=== PATIENT | female | born 1995 | race Caucasian/White ===

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

== ENCOUNTER 2018-09-17 16:17 | Emergency (ER) | payer MEDICAID ==
[2018-09-17 16:39] VITALS: RESP 18; TEMP 98.5; O2SAT 100; BMI 24.1
--- NOTE | 2018-09-17 17:03 | ED PDOC ---
Arrival/HPI - General Chief Complaint: GI Problem Time Seen by Provider: 09/17/18 16:27 Historian: Patient - History of Present Illness Narrative History of Present Illness (Text): 09/17/18 17:02 23 yo F no PMH, c/o constant abdominal pain x 2 yrs daily, with decreased appetite, has lost weight x 100 lbs over [address] Garcia 2 days ago advised to go to the ER to have labs and CT A/P. Patient describes pain as a burning sensation, worse with eating wheat and carbs, occurs typically after eating, has been associated with nausea, vomiting x 2 weeks. Patient also has chronic constipation has to take laxatives. She states that two years ago was seen in an ER for similar symptoms, had labs done. Otherwise reports no fevers, chills, CP, SOB, back pain, urinary symptoms, diarrhea. Of note, patient has not seen GI for her symptoms. Reports no h/o abdominal surgeries. PMD Radha Past Medical History - Infectious Disease Hx of Infectious Diseases: None - Psychiatric Hx Substance Use: No - Anesthesia Hx Anesthesia: No Hx Anesthesia Reactions: No Hx Malignant Hyperthermia: No Family/Social History Family/Social History: No Known Family HX Smoking Status: Never Smoked Hx Alcohol Use: No Hx Substance Use: No Allergies/Home Meds Allergies/Adverse Reactions: Allergies No Known Allergies Allergy (Verified 09/17/18 16:26) Review of Systems - Review of Systems Constitutional: absent: Fatigue, Fevers Respiratory: absent: SOB, Cough Cardiovascular: absent: Chest Pain, Palpitations Gastrointestinal: Abdominal Pain, Nausea, Vomiting. absent: Diarrhea Genitourinary Female: absent: Dysuria, Frequency Musculoskeletal: absent: Arthralgias, Back Pain Skin: absent: Rash, Skin Lesions Neurological: absent: Headache, Dizziness Physical Exam Vital Signs Temp Pulse Resp BP Pulse Ox 09/17/18 16:25 98.5 F 83 18 107/70 100 Temperature: Afebrile Blood Pressure: Normal Pulse: Regular Respiratory Rate: Normal Appearance: Positive for: Well-Appearing, Non-Toxic, Comfortable Pain Distress: None Mental Status: Positive for: Alert and Oriented X 3 - Systems Exam Head: Present: Atraumatic, Normocephalic Pupils: Present: PERRL Extroacular Muscles: Present: EOMI Conjunctiva: Present: Normal Mouth: Present: Moist Mucous Membranes Neck: Present: Normal Range of Motion Respiratory/Chest: Present: Clear to Auscultation, Good Air Exchange. No: Respiratory Distress, Accessory Muscle Use Cardiovascular: Present: Regular Rate and Rhythm, Normal S1, S2. No: Murmurs Abdomen: Present: Other (negative singh's). No: Tenderness, Distention, Peritoneal Signs, Rebound, Guarding, [place]'s [place] Tender Back: Present: Normal Inspection Upper Extremity: Present: Normal Inspection. No: Cyanosis, Edema Lower Extremity: Present: Normal Inspection. No: Edema Neurological: Present: GCS=15, CN II-XII Intact, Speech Normal Skin: Present: Warm, Dry, Normal Color. No: Rashes Psychiatric: Present: Alert, Oriented x 3, Normal Insight, Normal Concentration Medical Decision Making ED Course and Treatment: 09/17/18 17:09 Plan : - IV - Labs - UA, urine cx - Pepcid / Zofran - Reassess / disposition - CT A/P 09/17/18 18:34 Labs reviewed : wbc 4.2, hgb 9.9 / hct 32, cmp wnl, ua (-), uhcg (-). Patient resting in bed comfortably in no acute distress. Drinking po contrast, pending CT. Patient had her CT, pending results, patient laying comfortably in bed in no acute distress. 09/17/18 22:46 CT Abdomen/Pelvis, reviewed by radiologist: IMPRESSION: Diffuse periportal edema is noted. Subtle pericholecystic edema. Differential includes fluid overload vs acute hepatitis. Electronically signed on Sep 17, 2018 10:46:02 PM EDT by: Romain Samuel M.D., EDWARDO Certified By [facility] [facility] Fellowship Trained MRI and CT Specialist On re-evaluation, patient remains AAOx3, in no acute distress, laying in bed comfortably, using her cell phone. Abdomen soft, non-tender. Case d/w Dr. Garcia, states that the patient can be d/c with outpatient follow up with him and GI referral. Diagnostic results d/w the patient in great detail. Diagnosis of possible dyspepsia d/w the patient. Advised that she should see a GI specialist for her symptoms and obtain an outpatient endoscopy for further evaluation. Based on history, exam and diagnostic results, plan will be for outpatient follow up. Patient instructed to follow-up with pmd and GI referral provided in 1-2 days w ithout fail. Advised to take medication as prescribed. Return to the emergency room at any time for any new or worsening symptoms. Patient states she fully agrees with and understands discharge instructions. States that she agrees with the plan and disposition. Verbalized and repeated discharge instructions and plan. I have given the patient opportunity to ask any additional questions. - PA / SALES AND MARKETING VICE PRESIDENT / Resident Statement MD/DO has reviewed & agrees with the documentation as recorded. Disposition/Present on Arrival - Present on Arrival Any Indicators Present on Arrival: No History of DVT/PE: No History of Uncontrolled Diabetes: No Urinary Catheter: No History of Decub. Ulcer: No History Surgical Site Infection Following: None - Disposition Have Diagnosis and Disposition been Completed?: Yes Diagnosis: Chronic abdominal pain Disposition: HOME/ ROUTINE Disposition Time: 22:45 Patient Plan: Discharge Condition: STABLE Discharge Instructions (ExitCare): Acute Abdomen (Belly Pain), Adult (DC) Additional Instructions: Thank you for letting us take care of you today. You were treated for chronic abdominal pain. The emergency medical care you received today was directed at your acute symptoms. If you were prescribed any medication, please fill it and take as directed. It may take several days for your symptoms to resolve. Return to the Emergency Department if your symptoms worsen, do not improve, or if you have any other problems. Please contact your doctor in 2 days for re-evaluation and follow up / or call one of the physicians/clinics you have been referred to that are listed on the Patient Visit Information form that is included in your discharge packet. Bring any paperwork you were given at discharge with you along with any medications you are taking to your follow up visit. Our treatment cannot replace ongoing medical care by a primary care provider (PCP) outside of the emergency department. Thank you for allowing the [employer] [facility] team to be part of your care today. Your CT scan of the abd/pelvis showed diffuse periportal edema, subtle pericholecystic edema. Follow up CT results with your PMD and with GI referral. Prescriptions: Esomeprazole Magnesium [Nexium] 20 mg PO DAILY #30 ecc Referrals: Qi Mccormack MD [Medical Doctor] - Follow up with primary Johnny Garcia MD [Primary Care Provider] - Follow up with primary Forms: [email or web address] ([place]), SCHOOL NOTE, WORK NOTE
[2018-09-17] MEDS ORDERED: Sodium Chloride 0.9% 1,000 ML IV STA (17:09)
[2018-09-17 17:49] LABS: BASO # 0.06 K/mm3 (0.0-2.0); BASO % 1.4 % (0.0-3.0); EOS # 0.1 (0.0-0.7); EOS % 2.6 % (1.5-5.0); HEMOGLOBIN 9.9 g/dL (12.0-16.0); LYMPH % 47.8 % (22.0-35.0); MEAN CELL VOLUME 82.3 fl (80.0-105.0); MEAN CORPUSCULAR HEMOGLOBIN 25.4 pg (25.0-35.0); MEAN CORPUSCULAR HGB CONC 30.8 g/dl (31.0-37.0); MEAN PLATELET VOLUME 9.7 fl (7.0-11.0); MONO # 0.4 (0.1-0.6); MONO % 9.9 % (1.0-6.0); RBC 3.9 10^6/uL (3.5-6.1); RED CELL DISTRIBUTION WIDTH 13.9 % (11.5-14.5); WHITE BLOOD COUNT 4.2 10^3/uL (4.5-11.0)
[2018-09-17 18:00] LABS: ALB/GLOB RATIO 1.2 (1.1-1.8); ALBUMIN 4.2 g/dL (3.0-4.8); AST/SGOT 28 U/L (14-36); BLOOD UREA NITROGEN 8 mg/dL (7-21); CALCIUM 9.5 mg/dL (8.4-10.5); GFR NON-AFRICAN AMERICAN > 60; LIPASE 120 U/L (23-300)
[2018-09-17 18:03] LABS: INR 1.2; PARTIAL THROMBOPLASTIN TIME 32.7 Seconds (26.9-38.3); PROTHROMBIN TIME 13.3 SECONDS (9.4-12.5)
[2018-09-17 18:15] LABS: ALT/SGPT < 6 U/L (7-56)
[2018-09-17 18:20] LABS: URINE BILIRUBIN NEGATIVE (NEGATIVE); URINE BLOOD NEGATIVE (NEGATIVE); URINE GLUCOSE (UA) NEGATIVE (NEGATIVE); URINE LEUKOCYTE ESTERASE TRACE Leu/uL (NEGATIVE); URINE PROTEIN NEGATIVE mg/dL (<30 mg/dL); URINE UROBILINOGEN 0.2 E.U./dL (<1 E.U./dL)
[2018-09-17 18:22] LABS: URINE APPEARANCE CLEAR (CLEAR); URINE COLOR YELLOW (YELLOW)
[2018-09-17] MEDS ORDERED: Iohexol 350 MG/100 ML VIAL ONE (18:22)
[2018-09-17] MEDS ORDERED: Iohexol 240 (50 ml) ONE (18:22)
[2018-09-18 00:38] VITALS: BP 108/78; PULSE 75
--- NOTE | 2018-09-18 09:17 | CT ---
Date of service: 09/17/2018 PROCEDURE: CT Abdomen and Pelvis with contrast HISTORY: Abdominal pain, hematemesis. Vomiting COMPARISON: None. TECHNIQUE: Intravenous contrast dose: 100 cc Omnipaque 300. Radiation dose: Total exam DLP = 448.02 mGy-cm. This CT exam was performed using one or more of the following dose reduction techniques: Automated exposure control, adjustment of the mA and/or kV according to patient size, and/or use of iterative reconstruction technique. FINDINGS: LOWER THORAX: Unremarkable. LIVER: Periportal edema identified common nonspecific finding that can be seen with congestive heart failure which is unlikely given the patient's age. Additional etiologies would be hepatitis, infectious inflammatory processes of the liver. No gross lesion or ductal dilatation. GALLBLADDER AND BILE DUCTS: No gallstones are visible. PANCREAS: Unremarkable. No gross lesion or ductal dilatation. SPLEEN: Unremarkable. ADRENALS: Unremarkable. No mass. KIDNEYS AND URETERS: Unremarkable. No hydronephrosis. No solid mass. VASCULATURE: Unremarkable. No aortic aneurysm. No atherosclerotic calcification or mural plaque present. BOWEL: Unremarkable. No obstruction. No gross mural thickening. APPENDIX: Normal appendix. PERITONEUM: Unremarkable. No free fluid. No free air. LYMPH NODES: Unremarkable. No enlarged lymph nodes. BLADDER: Unremarkable. REPRODUCTIVE: Contrast-enhancing masses in the uterus likely uterine fibroids. Bilateral adnexal cysts/follicles. BONES: No acute fracture. OTHER FINDINGS: None. IMPRESSION: No acute findings related to/ accounting for the clinical presentation. Additional benign and/or incidental findings described above. Concordant findings (preliminary report) provided by [employer].
== END 2018-09-17 23:33 | disposition home or self-care (01) ==
LOC: ED 16:17
DX: R10.9 Unspecified abdominal pain (principal); G89.29 Other chronic pain
CPT/HCPCS: 74177; 80053; 81001; 81025; 83690; 83735; 85025; 85610; 85730; 87086; 96361; 96374; 96375; 99284; J2405; J7030; Q9966; Q9967